=== PATIENT | female | born 1980 | race Caucasian/White ===

== ENCOUNTER → 2018-05-08 | Outpatient (REF) | payer BC | LOC: M SFHCLERA 10:52 | PROVIDERS: ATTEND Physician Assistant | DX: J02.9 Acute pharyngitis, unspecified (principal) ==

== ENCOUNTER → 2019-12-28 | Outpatient (REF) | payer BC | LOC: M SFHCLUC 10:13 | PROVIDERS: ATTEND Physician Assistant | DX: J02.9 Acute pharyngitis, unspecified (principal) ==

== ENCOUNTER → 2020-06-25 | Outpatient (CLI) | payer BC ==
--- NOTE | 2020-06-26 08:45 | REP ---
INDICATION: D25.1 INTRAMURAL LEIOMYOMA OF UTERUS COMPARISON: None. TECHNIQUE: Transabdominal pelvic ultrasound followed by transvaginal examination for better evaluation of the endometrium and adnexa with color evaluation of the ovaries. FINDINGS: Bladder is unremarkable and measures 12.5 x 15.1 x 9.7 cm. Enlarged heterogeneous anteverted uterus measures 15.3 x 8.3 x 9.3 cm. The endometrial complex measures 11.0 mm thickness. Poorly defined fibroids are suggested measuring 6.8 cm maximal diameter at the fundus and submucosal fibroid measuring 2.5 cm at the mid body. Bilateral ovaries are normal in appearance and vascularity without evidence for torsion. Right ovary measures 4.3 x 3.4 x 2.8 cm; left ovary measures 3.2 x 2.3 x 1.9 cm. No pelvic fluid or adnexal mass lesion. IMPRESSION: Enlarged heterogeneous myomatous uterus. <Electronically signed by Valentín Brandon > 06/26/20 [id number]
== END ==
LOC: M WHC 09:19
PROVIDERS: ATTEND Obstetrics & Gynecology
DX: D25.1 Intramural leiomyoma of uterus (principal)

== ENCOUNTER → 2021-07-11 | Outpatient (CLI) | payer BC | LOC: M WHC 13:00 | PROVIDERS: ATTEND Obstetrics & Gynecology | DX: D25.1 Intramural leiomyoma of uterus (principal) ==

== ENCOUNTER → 2022-02-17 | Outpatient (CLI) | payer BC | LOC: M WHC 11:43 | PROVIDERS: ATTEND Obstetrics & Gynecology | DX: D25.2 Subserosal leiomyoma of uterus (principal) ==

== ENCOUNTER → 2022-07-21 | Outpatient (CLI) | payer BC ==
[2022-07-21 13:31] LABS: HEMATOCRIT 39.2 % (36.0-47.0); HEMOGLOBIN 12.1 g/dl (12.0-15.5); MEAN CORPUSCULAR HEMOGLOBIN 27.8 pg (27.0-33.0); MEAN CORPUSCULAR HGB CONC 30.9 g/dl (32.0-36.5); MEAN CORPUSCULAR VOLUME 89.9 fl (80.0-96.0); PLATELET COUNT, AUTOMATED 351 10^3/uL (150-450); RED BLOOD COUNT 4.36 10^6/uL (4.00-5.40); WHITE BLOOD COUNT 6.4 10^3/uL (4.0-10.0)
== END ==
LOC: M PLALAB 10:29
PROVIDERS: ATTEND Obstetrics & Gynecology
DX: Z12.4 Encounter for screening for malignant neoplasm of cervix (principal)
CPT/HCPCS: 36415; 85027; 87624; G0123

== ENCOUNTER → 2022-10-07 | Outpatient (REF) | payer BC ==
[~2022-10-07] MED LIST: D200CAP3 PO; FLON1SPR; MULT-90 PO; ZYRTTAB8 PO
== END ==
LOC: M SFHCWAGY 18:00
PROVIDERS: ATTEND Obstetrics & Gynecology
DX: N85.8 Other specified noninflammatory disorders of uterus (principal)

== ENCOUNTER 2022-10-24 06:48 | Observation (INO) | payer BC ==
[2022-10-23 14:40] VITALS: BP 109/68; TEMP 97.7; O2SAT 99
[~2022-10-24] VITALS: Ht 162.6 cm; Wt 79.3 kg
[~2022-10-24 06:48] MED LIST changes: +ceFAZolin SOD 2 GM in IV 1 EA IV ONE
[2022-10-24] MEDS ORDERED: LR 1,000 ML IV SCH ×3 (07:10→13:50)
[2022-10-24 07:24] LABS: HEMATOCRIT 36.4 % (36.0-47.0); HEMOGLOBIN 11.8 g/dl (12.0-15.5); MEAN CORPUSCULAR HEMOGLOBIN 28.8 pg (27.0-33.0); MEAN CORPUSCULAR HGB CONC 32.4 g/dl (32.0-36.5); MEAN CORPUSCULAR VOLUME 88.8 fl (80.0-96.0); PLATELET COUNT, AUTOMATED 338 10^3/uL (150-450); WHITE BLOOD COUNT 6.9 10^3/uL (4.0-10.0)
[2022-10-24] MEDS ORDERED: METHYLENE BLUE 0.5% (5MG/ML) 10 ML AMP (PROVAYBLUE) As Ordered ONE (08:13)
[2022-10-24] MEDS ORDERED: LIDOCAINE 2% 100MG/5ML SDV (FOR ANES.) As Ordered ONE (08:45)
[2022-10-24] MEDS ORDERED: propofoL 200 MG/20 ML VIAL As Ordered ONE (08:45)
[2022-10-24] MEDS ORDERED: fentaNYL 250 MCG/5 ML INJECTION As Ordered ONE (08:45)
[2022-10-24] MEDS ORDERED: ROCURONIUM BROMIDE 50MG/5ML VIAL As Ordered ONE ×2 (08:45→10:27)
[2022-10-24] MEDS ORDERED: MIDAZOLAM 5MG/ML 1ML VIAL As Ordered ONE (08:46)
[2022-10-24] MEDS ORDERED: LACRILUBE (AKWA TEARS) OPHTH OINT 3.5GM As Ordered ONE (09:22)
[2022-10-24] MEDS ORDERED: DESFLURANE 240 ML INHALANT As Ordered ONE (09:39)
[2022-10-24] MEDS ORDERED: ACETAMINOPHEN 1000MG 100ML IV BAG As Ordered ONE (09:54)
[2022-10-24] MEDS ORDERED: KETOROLAC 60MG 2ML VIAL As Ordered ONE (09:54)
[2022-10-24] MEDS ORDERED: METOCLOPRAMIDE INJ 10MG/2ML VIAL As Ordered ONE (09:54)
[2022-10-24] MEDS ORDERED: ONDANSETRON 4MG 2ML VIAL As Ordered ONE (09:54)
[2022-10-24] MEDS ORDERED: SUGAMMADEX SODIUM 500 MG/5 ML VIAL (BRIDION) As Ordered ONE (10:56)
[2022-10-24] MEDS ORDERED: HYDROmorphone HCL 2MG/ML 1ML VIAL As Ordered ONE (11:30)
[2022-10-24] MEDS ORDERED: ceFAZolin 2 GM/D5W 50 ML IV BAG As Ordered ONE (13:20)
[2022-10-24] MEDS ORDERED: HYDROMORPHONE HCL 0.5 MG/ 0.5 ML SYRINGE IV PRN (13:30)
[2022-10-24] MEDS ORDERED: ONDANSETRON 4MG 2ML VIAL IV PRN ×2 (13:30→13:50)
[2022-10-24] MEDS ORDERED: oxyCODONE 5MG TAB PO PRN (13:30)
[2022-10-24] MEDS ORDERED: fentaNYL 100 MCG/2 ML INJECTION IV PRN (13:30)
[2022-10-24] MEDS ORDERED: PERCOCET 5MG/325MG TAB PO PRN ×2 (13:50)
[2022-10-24] MEDS ORDERED: MORPHINE 2 MG/ML 1ML VIAL IV PRN (13:50)
[2022-10-24] MEDS ORDERED: COLA100C5 PO (14:00)
[2022-10-24] MEDS ORDERED: PERCOCET PO (14:00)
[2022-10-24] MEDS ORDERED: IBUP80TA PO (14:00)
[2022-10-24 15:10] VITALS: BP 103/56; TEMP 98.1; O2SAT 98
[2022-10-24 15:40] VITALS: BP 104/61; TEMP 98.3; O2SAT 100
[2022-10-24 16:40] VITALS: BP 101/63; TEMP 97.9; O2SAT 100
[2022-10-24 17:40] VITALS: BP 98/68; TEMP 98.9; O2SAT 98
[2022-10-24 18:40] VITALS: BP 106/67; TEMP 99.9; O2SAT 99
[2022-10-24] MEDS: KETOROLAC 30 MG/ML 1ML VIAL IV SCH (18:44)
[2022-10-24] MEDS: DOCUSATE SODIUM 100MG CAPSULE PO SCH (19:58)
[2022-10-24 20:00] VITALS: BP 98/60; TEMP 99.3; O2SAT 98
[2022-10-25] MEDS: KETOROLAC 30 MG/ML 1ML VIAL IV SCH ×2 (00:16→06:39)
[2022-10-25 00:32] VITALS: BP 99/54; TEMP 99.3; O2SAT 95
[2022-10-25 04:00] VITALS: BP 104/55; TEMP 99; O2SAT 96
[2022-10-25 07:40] VITALS: BP 116/57; TEMP 98.9; O2SAT 99
[2022-10-25] MEDS: DOCUSATE SODIUM 100MG CAPSULE PO SCH (08:58)
[2022-10-25] MEDS ORDERED: IBUPROFEN 800 MG TAB PO SCH (15:00)
== END 2022-10-25 12:39 | disposition home or self-care (01) ==
LOC: M SDC 06:48 → M PED 13:50 → M SDC 19:04 → M PED 19:05
PROVIDERS: ADMIT Obstetrics & Gynecology; ATTEND Obstetrics & Gynecology
DX: D25.2 Subserosal leiomyoma of uterus (principal); D25.0 Submucous leiomyoma of uterus; D25.1 Intramural leiomyoma of uterus; K21.9 Gastro-esophageal reflux disease without esophagitis; F41.9 Anxiety disorder, unspecified; Z79.899 Other long term (current) drug therapy; Z87.891 Personal history of nicotine dependence
CPT/HCPCS: 36415; 58573; 81025; 85027; 86850; 86900; 86901; 88307; 96361; 96374; 96376; J0131; J0690; J1100; J1170; J1885; J2250; J2405; J2765; J3010; Q9968; S0020; S2900